=== PATIENT | female | born 1945 | race African-American/Black ===

== ENCOUNTER → 2020-07-11 | Outpatient (CLI) | payer OTHER, BC ==
[~2020-07-11] MED LIST: HYZAAR 100-12.1 EACH PO; LOPRESSOR25 PO; LOPRESSOR50 PO; METFORMIN HCL500 MG PO; MULTIVITAMINS PO; POTASSIUM20 PO; PREDNISONE 20 M20 MG PO; TRAMADOL 50 MG50 MG PO
== END ==
LOC: SJCVC 16:15
PROVIDERS: ATTEND Internal Medicine
DX: Z13.220 Encounter for screening for lipoid disorders (principal); R94.31 Abnormal electrocardiogram [ECG] [EKG]; I11.0 Hypertensive heart disease with heart failure; I50.9 Heart failure, unspecified; E11.9 Type 2 diabetes mellitus without complications; Z88.1 Allergy status to other antibiotic agents; Z79.899 Other long term (current) drug therapy

== ENCOUNTER → 2020-08-11 | Outpatient (CLI) | payer OTHER, BC | LOC: SJCVCIMAG 07:14 | PROVIDERS: ATTEND Internal Medicine | DX: Z01.810 Encounter for preprocedural cardiovascular examination (principal); I44.0 Atrioventricular block, first degree; I08.8 Other rheumatic multiple valve diseases; R94.31 Abnormal electrocardiogram [ECG] [EKG]; N28.1 Cyst of kidney, acquired; E11.9 Type 2 diabetes mellitus without complications; I11.0 Hypertensive heart disease with heart failure; I50.9 Heart failure, unspecified; Z88.1 Allergy status to other antibiotic agents; Z79.899 Other long term (current) drug therapy ==

== ENCOUNTER → 2020-08-25 | Outpatient (CLI) | payer OTHER, BC | LOC: SJCVC 11:16 | PROVIDERS: ATTEND Internal Medicine | DX: Z01.810 Encounter for preprocedural cardiovascular examination (principal); I11.0 Hypertensive heart disease with heart failure; I50.9 Heart failure, unspecified; E11.9 Type 2 diabetes mellitus without complications; R07.9 Chest pain, unspecified; N28.1 Cyst of kidney, acquired; Z82.49 Family history of ischemic heart disease and other diseases of the circulatory system; Z88.8 Allergy status to other drugs, medicaments and biological substances; Z79.84 Long term (current) use of oral hypoglycemic drugs; Z79.899 Other long term (current) drug therapy; Z90.710 Acquired absence of both cervix and uterus ==

== ENCOUNTER → 2020-09-08 | Outpatient (CLI) | payer OTHER, BC ==
[~2020-09-08] MED LIST changes: +ALLERGY MEDICAT25 MG PO; +CLONIDINE HCL0.1 MG PO; +DILTIAZEM 24HR300 M2 PO; +FLUTICASONE PRO16 GM NASAL; +METOPROLOL TAR100 MG PO; +MULTI VITAMIN1 EACH PO; +VALSARTAN-HCTZ1 EAC4 PO
== END ==
LOC: SJCVC 10:41
PROVIDERS: ATTEND Internal Medicine
DX: Z01.818 Encounter for other preprocedural examination (principal); I11.0 Hypertensive heart disease with heart failure; I50.9 Heart failure, unspecified; E11.9 Type 2 diabetes mellitus without complications; N28.1 Cyst of kidney, acquired; Z90.49 Acquired absence of other specified parts of digestive tract; Z88.1 Allergy status to other antibiotic agents; Z79.84 Long term (current) use of oral hypoglycemic drugs; Z79.899 Other long term (current) drug therapy

== ENCOUNTER → 2020-09-19 | Outpatient (CLI) | payer OTHER, BC ==
[~2020-09-19] MED LIST changes: +BAYER CHEWABLE81 MG PO
[2020-09-19 11:00] LABS: HEMATOCRIT 35.3 % (37.0-47.0); HEMOGLOBIN 11.8 gm/dL (12.0-15.0); MCH 31.1 pg (26.0-34.0); MCHC 33.6 g/dL (28.0-37.0); MCV 92.5 fL (80.0-100.0); RBC 3.81 mil/uL (4.20-5.00); RDW 14.3 % (10.5-14.5); WBC 4.8 thou/uL (4.0-11.0)
[2020-09-19 11:17] LABS: URINE BILIRUBIN NEGATIVE (Negative); URINE BLOOD NEGATIVE (Negative); URINE CLARITY CLEAR; URINE COLOR YELLOW; URINE GLUCOSE-RANDOM* NEGATIVE (Negative); URINE KETONES NEGATIVE (Negative); URINE LEUKOCYTES-REFLEX NEGATIVE (Negative); URINE NITRITE-REFLEX NEGATIVE (Negative); URINE PROTEIN (DIPSTICK) NEGATIVE (Negative); URINE UROBILINOGEN 0.2 E.U./dl (0.2-1.0)
[2020-09-19 11:20] LABS: INR 1.05; PROTIME 11.4 Seconds (10.5-12.1)
[2020-09-19 11:22] LABS: ALBUMIN 3.4 g/dL (3.4-5.0); CALCIUM 9.2 mg/dL (8.5-10.1); CREATININE 1.2 mg/dL (0.6-1.0); POTASSIUM 4.5 mmol/L (3.5-5.1)
== END ==
LOC: PAC 09:59
PROVIDERS: ATTEND Orthopaedic Surgery
DX: Z01.812 Encounter for preprocedural laboratory examination (principal); M17.11 Unilateral primary osteoarthritis, right knee; I10 Essential (primary) hypertension

== ENCOUNTER 2020-09-26 10:58 | Observation (INO) | payer OTHER, BC ==
[~2020-09-26] VITALS: Ht 152.4 cm; Wt 96.2 kg
--- NOTE | ~2020-09-26 | O ---
[facility] [place] [address] OPERATIVE REPORT Name: TIMOTEO URBINA Room #: 448-P [facility] MOsiel#: [id number] Admission: 09/26/20 Attend Phys: Lonnie Estrella MD Discharge: Date of : 47 Report #: [id number] THIS REPORT FOR: cc: Joey Elam MD, Christopher B. MD Abraham,Lonnie Wong MD ~ DOC #: [id number] Lonnie Estrella MD DATE OF SERVICE: 09/26/2020 PREOPERATIVE DIAGNOSIS: Right knee osteoarthritis. POSTOPERATIVE DIAGNOSIS: Right knee osteoarthritis. PROCEDURE: Right total knee arthroplasty using Navio robotic assistance. SURGEON: Lonnie Estrella MD. AUTOMOBILE RELOCATION ENGINEER: Daly Claudio PA-C. INDICATIONS FOR AUTOMOBILE RELOCATION ENGINEER: Throughout the case, extensive retraction, manipulation of the knee was required. This was afforded to me by my trust operations assistant. ANESTHESIA: LMA with adductor canal block. IMPLANTS: A [employer] size 4, cobalt chrome Journey II BCS femur, size 3 tibia, size 10 constrained polyethylene, size 29 patella. TOURNIQUET TIME: 54 minutes. ESTIMATED BLOOD LOSS: 25 mL COMPLICATIONS: None. SPECIMENS: None. CONDITION UPON LEAVING THE OR: Stable. INDICATIONS FOR PROCEDURE: The patient is a 75-year-old female with severe right knee osteoarthritis. She had failed conservative measures for this and after discussion with her, she elected for right total knee arthroplasty. DESCRIPTION OF PROCEDURE: Risks, benefits, alternatives, complications were discussed in detail with the patient including but not limited to risk of anesthesia, risk of damage to nerves, arteries, blood vessels, risk for infection, bleeding, risk for continued knee pain, need for reoperation. [address] [address] OPERATIVE REPORT Name: CARLITOSTIMOTEO Room #: 448-P [facility] Shreya Isaac#: [id number] Admission: 09/26/20 Attend Phys: Lonnie Estrella MD Discharge: Date of : 47 Report #: [id number] Informed consent was obtained from the patient. The right knee was appropriately marked in the preoperative holding area. IV Ancef was given for preoperative antibiotics. She was brought to the operating room and placed in the supine position on the operating table. LMA anesthesia was induced without complication. Tourniquet was placed on the right thigh. Right lower extremity was prepped and draped in normal sterile fashion. Timeout was performed properly identifying the patient and procedure as well as the instrumentation and implants. All in the operating room in agreement. Right lower extremity was exsanguinated, tourniquet was inflated. Tourniquet time was 54 minutes. Standard midline approach to knee was made with 10 blade through the skin. Dissection was taken down sharply to the fascia and deep flaps were developed medially and laterally. Fresh 10 blade was used to make a medial parapatellar arthrotomy and the knee was inspected. There was severe tricompartmental osteoarthritis. ACL and PCL were removed sharply. Reference pins were placed in the femur and the tibia. The knee was digitally mapped using the [employer] robotic system. Intraoperative plan was made. We sized to size 4 femur, size 3 tibia and a 10 spacer. After acceptance of the intraoperative plan, the distal femoral cut was made with Navio bur. Distal femoral cutting block was pinned in place and chamfer cuts were made. Attention was turned to the tibia. Remainder of the menisci removed with Bovie cautery. Tibial resection guide was pinned in place using Navio for placement. Tibial resection was made. Flexion and extension gaps were then checked and found to have good balance laterally, but somewhat tight medially and the medial osteophyte was removed from the tibia and a limited medial release was performed using the pie crust technique. This balanced the knee well. Tibia sized, found to be a size 3. A size 3 tibial trial was placed, pinned and punched. A size 4 femoral trial was placed and the box cut was made. This was then trialed with a size 9 and then a size 10 polyethylene. Size 10 polyethylene demonstrated full extension with good balance laterally throughout range of motion of the knee. She did have up to 3 mm of laxity medially and deep flexion. It was felt we can make up for this with a constrained implant, 9 mm of bone was resected from the posterior surface of the patella and a size 29 patellar trial button was placed. Knee was taken through range of motion, found to be stable, found to have good patellar tracking. Trial components were removed. Bony ends were thoroughly irrigated with normal saline. A final size 3 tibia, size 4 Journey II BCS cobalt chrome femur and a size 29 patella were cemented in place using standard cementation techniques. While the cement cured, a periarticular injection consisting of morphine, ropivacaine, epinephrine, Toradol was placed around the knee joint capsule. After the cement cured, tourniquet was deflated. Hemostasis was obtained with Bovie cautery. A final size 10 constrained polyethylene was placed. A gram of vancomycin was placed deep in the joint. The fascia was closed with 0 Vicryl. Skin was closed with 2-0 Vicryl, skin staple and a RYNE dressing was applied. The patient tolerated this procedure well and went to the recovery room under the care of Anesthesia postoperatively. [address] [place] [address] OPERATIVE REPORT Name: TIMOTEO URBINA Room #: 448-P [facility] Shreya MErastoRErasto#: [id number] Admission: 09/26/20 Attend Phys: Lonnie Estrella MD Discharge: Date of : 47 Report #: [id number] MD MITA Boswell By: [id number] Lonnie Estrella MD /nt
[~2020-09-26 10:58] MED LIST changes: -BAYER CHEWABLE81 MG PO
[2020-09-26 13:51] VITALS: BP 170/66
[2020-09-26 18:15] VITALS: BP 131/67
--- NOTE | 2020-09-26 19:30 | NUR ---
PATIENT ON UNIT AT 1810. VITAL SIGNS TAKEN, PATIENT SETTLED IN ROOM.
[2020-09-26 20:35] VITALS: BP 166/84
--- NOTE | 2020-09-27 01:55 | NUR ---
ASSUMED PT CARE AT 1900.PT'S ADMISSION COMPLETED.PT HAD AN EPISODE OF N/V DURING ADMISSION PROCESS,MANAGED WITH MED.BHARATH PAIN MED GIVEN ORDERED.PT UP WITH ASSIST /GB AND WALKER TO BSC.PT ABLE TO MOY CLEAR LIQUIDS.DRSG TO HER R KNEE C/D/I.SOFIE SIU,DONG AND POLAR PACK IN PLACE.CALL LIGHT WITHIN REACH.
[2020-09-27 05:08] VITALS: BP 145/68
[2020-09-27 10:18] LABS: HEMATOCRIT 29.8 % (37.0-47.0); HEMOGLOBIN 9.7 gm/dL (12.0-15.0); LYMPHOCYTES 4.8 % (24.0-44.0); MCH 30.3 pg (26.0-34.0); MCHC 32.5 g/dL (28.0-37.0); MCV 93.2 fL (80.0-100.0); MONOCYTES 3.5 % (1.0-8.0); PLATELET COUNT 246 thou/uL (150-400); POLYS 91.7 % (36.0-66.0); RDW 14.2 % (10.5-14.5); WBC 18.5 thou/uL (4.0-11.0)
[2020-09-27 10:32] LABS: ALBUMIN 2.9 g/dL (3.4-5.0); CALCIUM 8.6 mg/dL (8.5-10.1); CREATININE 1.7 mg/dL (0.6-1.0); MAGNESIUM 1.5 mg/dL (1.8-2.4); POTASSIUM 3.9 mmol/L (3.5-5.1); TOTAL BILIRUBIN 0.3 mg/dL (0.2-1.0); TOTAL PROTEIN 7.3 g/dL (6.4-8.2)
--- NOTE | 2020-09-27 11:32 | NUR ---
Assumed care of pt at 0700. Pt pleasant and a&ox4. Dressing c/d/i. SBA. Up to the chair for breakfast. IVF infusing. SOFIE hose and SCDs in place. Polar care in place. Pain controlled with prn pain meds. Call light within reach. Fall precautions in place. Will continue to monitor.
--- NOTE | 2020-09-27 14:48 | NUR ---
ASSESSMENT: CM REVIEWED CHART AND MET WITH PATIENT AT THE BEDSIDE. PT IS ALERT AND ORIENTED X4. PT REPOTRS SHE LIVES IN A HOUSE ALONE. PT REPORTS SHE HAS FAMILY BUT STATES THEY ALL WORK. PT IS S/P TOTAL KNEE REPLACEMENT. PT IS WORKING WITH THERAPY. PT REPORTS SHE IS TORN BETWEEN TRYING TO GO BACK HOME AT DISCHARGE OR TRY POST ACUTE CARE STAY. 5N HAS BEEN CONSULTED. PT REPORTS SHE WANTS TO SEE HOW SHE FEELS IN THE AM AND HOW SHE DOES WITH THERAPY BEFORE SHE MAKES A DETERMINATION OF WHAT SHE WANTS TO DO. ATTENDING IS AWARE AND 5N AWARE OF CONSULT. CM WILL CONTINUE TO FOLLOW TO ASSIST NEEDED.
[2020-09-27 15:09] VITALS: BP 164/70
--- NOTE | 2020-09-27 15:27 | NUR ---
PATIENT SEEN BY LONNY GONZALES NP WITH DR. CAO. PATIENT IS A CANDIDATE FOR ACUTE REHAB FROM FUNCTION NOTED THIS DATE. PATIENT IS INTERESTED IN 5N/ACUTE REHAB STAY. OT/PT TO SEE PATIENT IN AM TO SEE IF CONTINUED IMPROVEMENT WILL BE MADE. D/C NEEDS/LOCATION WILL BE DETERMINED AT THAT TIME.
[2020-09-27 20:06] VITALS: BP 149/69
[2020-09-28 05:18] VITALS: BP 156/72
--- NOTE | 2020-09-28 05:37 | NUR ---
ASSUMED PT CARE AT 1900. PT WAS LYING IN BED WITH BED ALARM ON,INTRODUCED SELF TO PT. PT WAS PLEASANT AND INTERACTIVE. PT DID NOT EXPRESS ANY CONCERN AND NO VISIBLE SIGN OF DISTRESS WAS NOTED. BED ON LOWEST LOCKED POSITION.
[2020-09-28 07:29] VITALS: BP 134/64
[2020-09-28 10:21] LABS: HEMATOCRIT 26.5 % (37.0-47.0); HEMOGLOBIN 8.7 gm/dL (12.0-15.0); MCH 30.6 pg (26.0-34.0); MCHC 32.8 g/dL (28.0-37.0); MCV 93.2 fL (80.0-100.0); RBC 2.85 mil/uL (4.20-5.00); RDW 14.3 % (10.5-14.5); WBC 13.7 thou/uL (4.0-11.0)
--- NOTE | 2020-09-28 10:23 | NUR ---
Assumed care of pt at 0700. Pt a&ox4. Pain controlled with prn pain meds. Dressing c/d/i. Up SBA. Worked with physical and occupational therapy today. Call light within reach. Fall precautions in place. Will continue to monitor.
[2020-09-28 10:39] LABS: CREATININE 1.5 mg/dL (0.6-1.0); MAGNESIUM 1.8 mg/dL (1.8-2.4); POTASSIUM 3.7 mmol/L (3.5-5.1)
[2020-09-28] MEDS ORDERED: BAYER CHEWABLE81 MG PO (12:19)
--- NOTE | 2020-09-28 14:30 | NUR ---
ON-GOING ASSESSMENT: CM REVIEWED CHART. PT IS DOING WELL WITH THERAPIES AND RECOMMENDING HOME WITH HOME HEALTH. CM SPOKE WITH ATTENDING WHO STATES PATIENT IS STABLE PENDING MEDICAL CLEARANCE. CM SPOKE WITH MEDICAL PHYSICIAN AND HE REPORTS PT IS NOT STABLE FOR DISCHARGE TODAY. CM WILL CONTINUE TO FOLLOW TO ASSIST NEEDED.
[2020-09-28 14:58] VITALS: BP 134/64
[2020-09-28 15:52] VITALS: BP 134/64
== END 2020-09-28 16:14 | disposition home or self-care (01) ==
LOC: OR → 4S 18:36
PROVIDERS: Internal Medicine; Nurse Practitioner; ADMIT Orthopaedic Surgery; ATTEND Orthopaedic Surgery
DX: M17.11 Unilateral primary osteoarthritis, right knee (principal); I77.6 Arteritis, unspecified; I10 Essential (primary) hypertension; E11.9 Type 2 diabetes mellitus without complications; D64.9 Anemia, unspecified; J45.909 Unspecified asthma, uncomplicated; Z79.4 Long term (current) use of insulin; Z79.899 Other long term (current) drug therapy
CPT/HCPCS: 50010; 50101; 50415; 50954; 51132; 51225; 51320; 51412; 52001; 52282; 53000; 53078; 56527; 56528; 57095; 57103; 57110; 57127; 57180; 58239; 62110; 62900; 64039; 70005

== ENCOUNTER → 2020-11-23 | Outpatient (CLI) | payer OTHER, BC ==
[~2020-11-23] MED LIST changes: +BAYER CHEWABLE81 MG PO
== END ==
LOC: SJCVC 10:20
PROVIDERS: ATTEND Internal Medicine
DX: I11.0 Hypertensive heart disease with heart failure (principal); I50.9 Heart failure, unspecified; E11.9 Type 2 diabetes mellitus without complications; Z79.899 Other long term (current) drug therapy; Z79.84 Long term (current) use of oral hypoglycemic drugs

== ENCOUNTER → 2021-01-04 | Outpatient (CLI) | payer OTHER, BC | LOC: SJCVC 09:56 | PROVIDERS: ATTEND Internal Medicine | DX: I11.0 Hypertensive heart disease with heart failure (principal); E11.9 Type 2 diabetes mellitus without complications; I50.9 Heart failure, unspecified; N28.1 Cyst of kidney, acquired; Z88.8 Allergy status to other drugs, medicaments and biological substances; Z79.84 Long term (current) use of oral hypoglycemic drugs; Z79.899 Other long term (current) drug therapy ==

== ENCOUNTER → 2021-02-15 | Outpatient (CLI) | payer OTHER, BC | LOC: SJCVC 09:36 | PROVIDERS: ATTEND Internal Medicine | DX: I11.0 Hypertensive heart disease with heart failure (principal); I50.9 Heart failure, unspecified; E11.9 Type 2 diabetes mellitus without complications; N28.1 Cyst of kidney, acquired; Z88.8 Allergy status to other drugs, medicaments and biological substances; Z79.84 Long term (current) use of oral hypoglycemic drugs; Z79.899 Other long term (current) drug therapy ==

== ENCOUNTER → 2021-03-17 | Outpatient (CLI) | payer OTHER, BC | LOC: SJCVC 09:38 | PROVIDERS: ATTEND Internal Medicine | DX: I11.0 Hypertensive heart disease with heart failure (principal); I50.9 Heart failure, unspecified; E11.9 Type 2 diabetes mellitus without complications; N28.1 Cyst of kidney, acquired; R43.1 Parosmia; Z96.651 Presence of right artificial knee joint; Z88.8 Allergy status to other drugs, medicaments and biological substances; Z79.84 Long term (current) use of oral hypoglycemic drugs; Z79.899 Other long term (current) drug therapy ==